=== PATIENT | female | born 1980 | race Caucasian/White ===

== ENCOUNTER 2023-06-27 10:49 | Outpatient (CLI) | payer BC, SELFPAY ==
--- NOTE | 2023-06-27 10:51 | MM_ITS ---
WS: [id number] BILATERAL SCREENING DIGITAL TOMOSYNTHESIS MAMMOGRAM WITH CAD HISTORY: SCREENING COMPARISON: None available. Bilateral CC and MLO views with tomosynthesis and synthetic mammography submitted. Computer aided det ection analyzed. Breast composition: The breasts are heterogeneously dense, which may obscure small masses. No suspici ous masses, microcalcifications or architectural distortion. RIGHT breast intramammary lymph nodes. N o suspicious masses. MM/[place] [id number] IMPRESSION: BI-RADS: 2-Benign FOLLOW UP: 1 Year Follow-up
== END 2023-06-27 10:50 | disposition home or self-care (01) ==
LOC: RAD 10:49
PROVIDERS: PCP Physician Assistant; Visit Provider Physician Assistant
DX: Z12.31 Encounter for screening mammogram for malignant neoplasm of breast (principal)
CPT/HCPCS: 77063; 77067

== ENCOUNTER → 2024-01-18 08:29 | Outpatient (BNVA) | payer BC, SELFPAY | PROVIDERS: PCP Physician Assistant; Visit Provider Podiatrist Foot & Ankle Surgery | DX: M79.672 Pain in left foot (principal); M25.572 Pain in left ankle and joints of left foot; G89.29 Other chronic pain; M72.2 Plantar fascial fibromatosis; M76.72 Peroneal tendinitis, left leg | CPT/HCPCS: 73610; 73620 ==

== ENCOUNTER 2024-05-17 15:15 | Outpatient (CLI) | payer BC, SELFPAY ==
--- NOTE | 2024-05-17 15:30 | US_ITS ---
WS: [id number] ULTRASOUND SOFT TISSUES LEFT calcaneus HISTORY: M72.2 - Plantar fascial fibromatosis COMPARISON: None available. TECHNIQUE: 2-D and color Doppler imaging is submitted. Subtle area of decreased echogenicity associated with the medial calcaneus. On the imaging submitted this is close associated with the calcaneal insertion site. No direct contact on the calcaneus. This may be due to projection of imaging. There is no increased vascularity and no fluid. Mild soft tissue thickening and heterogeneity in the calcaneal fat pad. The plantar fascia was not directly imaged. There is no increased vascularity or fluid collection. US/US soft tissue/extremity [id number] IMPRESSION: 1. Mild edema in the calcaneal fat pad. 2. Plantar fascia insertion site to the calcaneus is not definitely imaged.
== END 2024-05-17 15:16 | disposition home or self-care (01) ==
PROVIDERS: PCP Physician Assistant; Visit Provider Podiatrist Foot & Ankle Surgery
DX: M72.2 Plantar fascial fibromatosis (principal); R93.6 Abnormal findings on diagnostic imaging of limbs; M79.89 Other specified soft tissue disorders
CPT/HCPCS: 76882

== ENCOUNTER 2024-06-14 08:35 | Outpatient (RCR) | payer BC, SELFPAY | END 2024-07-05 12:57 | disposition home or self-care (01) | LOC: SPT 08:35 | PROVIDERS: Visit Provider Podiatrist Foot & Ankle Surgery | DX: M72.2 Plantar fascial fibromatosis (principal) | CPT/HCPCS: 97035; 97140; 97161 ==